=== PATIENT | male | born 1985 | race African-American/Black ===

== ENCOUNTER 2019-03-31 19:38 | Emergency (ER) | payer BC, OTHER ==
[2019-03-31] MEDS ORDERED: TETRACAINE HCL 0.5% OPH SOLN 4 ML OS ONE (19:50)
[2019-03-31 19:52] VITALS: BP 144/88
--- NOTE | 2019-03-31 19:53 | ER Document Report ---
ED Medical Screen (RME) - General Chief Complaint: Foreign Body in Eye Stated Complaint: OBJECT IN EYE Time Seen by Provider: 03/31/19 19:47 Primary Care Provider: CONNIE ALEMAN [Primary Care Provider] - Follow up as needed Mode of Arrival: Ambulatory Information source: Patient TRAVEL OUTSIDE OF THE [place] IN LAST 30 DAYS: No - HPI Patient complains to provider of: LEFT EYE INJURY Notes: 03/31/19 19:51 Patient with complaints of left eye injury. The patient was chopping wood when a piece of wood flew up and hit him in the left eye. Continues to have left eye pain and some blurred vision. Tetanus within the last 5 years. No other injury. Exam Conjunctival injection of the left eye with debris noted within the inferior aspect of the conjunctive. No hyphema. Superficial abrasions to the eyelid. No active bleeding. Plan We will place tetracaine drops in his eye at this time for relief. Patient will require further eye exam and visual acuity in the back. An initial examination was made on the patient as part of the triage process, and it was determined a more comprehensive evaluation was necessary. Initial labs were ordered and patient was transferred to another provider in the ED who assumed care and finished evaluation and plan. 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
--- NOTE | 2019-03-31 20:06 | ER Document Report ---
ED General - General Chief Complaint: Foreign Body in Eye Stated Complaint: OBJECT IN EYE Time Seen by Provider: 03/31/19 19:47 Primary Care Provider: NICKI CASTELLON MD [ACTIVE STAFF] - Follow up tomorrow Mode of Arrival: Ambulatory Notes: Patient is a 34-year-old male that presents to the emergency department for chief complaint of left eye injury. Patient states that he was chopping wood, just prior to ED arrival, when a piece of wood came up and hit him in the left eye, he states that he has pain in his eye at this time he describes it more of a burning sensation and rates it as a 6 out of 10, does not have pain with looking around. Denies noting any nausea or vomiting or headache associated. Denies any other injuries associated with this. He reports that he believes he is up-to-date with his tetanus vaccination within the last 5 years. Past Medical History: Denies chronic medical conditions Past Surgical History: Amma tooth extraction Social History: Denies tobacco, alcohol or drug use. Family History: Reviewed and noncontributory for presenting illness Allergies: Reviewed, see documented allergy list. REVIEW OF SYSTEMS: Other than noted above, the 12 point review of systems was reviewed with the patient and were negative, all pertinent findings are included in the HPI. PHYSICAL EXAMINATION: Vital signs reviewed, nursing noted reviewed. GENERAL: Well-appearing, well-nourished and appears uncomfortable. HEAD: normocephalic. EYES: EOMI, PERRLA, the left eye, there was mild edema to the upper and lower lid, with an area of mild ecchymosis, superficial abrasion as well to the upper lid, fluorescein dye exam did not reveal any corneal abrasion, no Eva sign, there was moderate conjunctival injection of the left eye, and there was noted to be debris in the patient's conjunctiva along the sclera. It also appeared that there is a very small abrasion measuring only 2 mm in diameter to the conjunctiva, the 6 o'clock position, inferior to the cornea and limbus. ENT: Moist mucous membranes. Oropharynx appears unremarkable, no other trauma noted to the face. NECK: Normal range of motion, supple without lymphadenopathy LUNGS: Breath sounds clear to auscultation bilaterally and equal. No wheezes rales or rhonchi. HEART: Regular rate and rhythm without murmurs EXTREMITIES: Nontender, good range of motion, no pitting or edema. NEUROLOGICAL: No focal neurological deficits. Moves all extremities spontaneously Motor and sensory grossly intact on exam. PSYCH: Normal mood, normal affect. SKIN: Warm, Dry, normal turgor, no rashes or lesions noted on exposed skin TRAVEL OUTSIDE OF THE [place] IN LAST 30 DAYS: No - Related Data Allergies/Adverse Reactions: No Known Allergies Allergy (Unverified 03/31/19 19:40) Past Medical History - General Information source: Patient - Social History Smoking Status: Never Smoker Frequency of alcohol use: None Drug Abuse: None Family History: Reviewed & Not Pertinent Patient has suicidal ideation: No Patient has homicidal ideation: No Renal/ Medical History: Denies: Hx Peritoneal Dialysis Skin Medical History: Comment Only Hx MRSA - MRSA ARM BOIL 04/06 Past Surgical History: Reports: Hx Oral Surgery - wisdom teeth Physical Exam - Vital signs Vitals: Temp Pulse Resp BP Pulse Ox 98.4 F 81 16 144/88 H 97 03/31/19 19:42 03/31/19 19:42 03/31/19 19:42 03/31/19 19:42 03/31/19 19:42 - HEENT Visual acuity- Right eye: 20/15 Visual acuity- Left eye: 20/15 Visual acuity- Both eyes: 20/15 Corrective lenses worn: No Course - Re-evaluation Re-evalutation: Patient seen and examined vital signs reviewed. Patient was evaluated and treated as appropriate for the patient's presenting symptoms and complaint, with consideration of any critical or life threatening conditions that may be associated with their obtained history and exam as noted above. Patient was treated with irrigation of the left eye, and using saline soaked sterile cotton tip swab, patient's debris noted in the patient's left conjunctiva was gently removed, nearly all of it was removed, some did appear to be rather adhered, and did not want to risk any further injury to the eye, and advised follow-up with ophthalmology, after extensive irrigation, and removal of debris. We will start the patient on ciprofloxacin eyedrops, advised every 4 hours until seen by ophthalmology. The patient was re-evaluated and was stable Evaluation was most consistent with foreign body in the conjunctiva, and conjunctival abrasion. Plan of care was discussed with the patient at this point, after careful consideration I feel that that patient can be discharged from the emergency department, the patient was educated treatments and reasons to return to the emergency department based on their presumed diagnosis as noted above, they were advised to followup with a primary care physician in 2-3 days. Patient was agreeable to plan of care. *Note is created using voice recognition software and may contain spelling, syntax or grammatical errors. - Vital Signs Vital signs: Temp Pulse Resp BP Pulse Ox 98.4 F 81 16 144/88 H 97 03/31/19 19:42 03/31/19 19:42 03/31/19 19:42 03/31/19 19:42 03/31/19 19:42 Discharge - Discharge Clinical Impression: Foreign body in conjunctival sac, left eye, initial encounter Conjunctival abrasion Qualifiers: Encounter type: initial encounter Laterality: left Qualified Code(s): S05.02XA - Injury of conjunctiva and corneal abrasion without foreign body, left eye, initial encounter Condition: Stable Disposition: HOME, SELF-CARE Instructions: Conjunctival Foreign Body ([facility]) Additional Instructions: Please place 1 drop from the eyedrop you are given is called ciprofloxacin in the left eye 6 times daily for the next 5 days. Please call to follow-up with ophthalmology, to have your eye reevaluated. Referrals: NICKI CASTELLON MD [ACTIVE STAFF] - Follow up tomorrow
[2019-03-31] MEDS ORDERED: CIPROFLOXACIN HCL 0.3% OPH SOLN 2.5 ML OS ONE (20:32)
== END 2019-03-31 21:03 | disposition home or self-care (01) ==
LOC: ER 19:38
DX: T15.12XA Foreign body in conjunctival sac, left eye, initial encounter (principal); S00.12XA Contusion of left eyelid and periocular area, initial encounter; W20.8XXA Other cause of strike by thrown, projected or falling object, initial encounter; Y93.89 Activity, other specified
CPT/HCPCS: 99283; J3490 ×2